=== PATIENT | female | born 1930 | race Caucasian/White ===

== ENCOUNTER 2018-03-16 12:00 | Emergency (ER) | payer MEDICARE, BC ==
[2018-03-16 12:07] VITALS: BP 138/66; PULSE 72; RESP 18; TEMP 98.1
--- NOTE | 2018-03-16 12:19 | ED ---
Skin/Abscess/FB HPI - General Chief complaint: Skin/Abscess/Foreign Body Stated complaint: Cellulitis Time Seen by Provider: 03/16/18 12:11 Source: patient, RN notes reviewed Mode of arrival: ambulatory Limitations: no limitations - History of Present Illness Initial comments: This is a 87-year-old female presented emergency Department chief complaint of right leg infection. Patient states she's noticed some redness last couple days she did start taking old antibiotics yesterday and she thought she should have it checked. Patient states she cut her legs frequently because she has thin skin. She reports no fever or chills. She states that she was worrying about this so she was concerned. Patient denies any headache, dizziness, chest pain or shortness of breath. - Related Data Home Medications Medication Instructions Recorded Confirmed LORazepam [Ativan] 0.5 mg PO Q6HR PRN 01/02/14 09/20/15 Furosemide [Lasix] 40 mg PO DAILY 07/22/14 09/20/15 Potassium Chloride [Klor-Con 8] 8 meq PO DAILY 07/22/14 09/20/15 cycloSPORINE 0.05% OPHTH SOLN 1 drops BOTH EYES BID 09/16/14 09/20/15 [Restasis] Polyethylene Glycol 3350 [Miralax] 17 gm PO DAILY 09/17/14 09/20/15 Mometasone/Formoterol [Dulera 200 2 puff INHALATION RT-DAILY 09/27/14 09/20/15 Mcg/5 Mcg Inhaler] Atorvastatin [Lipitor] 40 mg PO HS 09/14/15 09/20/15 Ascorbic Acid [Vitamin C] 500 mg PO DAILY 09/15/15 09/20/15 Lisinopril-Hctz 20-12.5 mg 1 tab PO BID 09/20/15 09/20/15 [Zestoretic 20-12.5] Cristel Eye 1 cap PO DAILY 09/20/15 09/20/15 Previous Rx's Medication Instructions Recorded Aspirin EC [Ecotrin Low Dose] 81 mg PO DAILY tablet. 09/26/15 amLODIPine [Norvasc] 10 mg PO 1200 #1 tab 09/26/15 cloNIDine HCL [Catapres] 0.1 mg PO BID #60 tab 09/26/15 Sulfamethox-Tmp 800-160Mg [Bactrim 1 each PO Q12HR #20 tab 03/16/18 Ds] Allergies Allergy/AdvReac Type Severity Reaction Status Date / Time gabapentin Allergy Rapid Verified 03/16/18 12:08 Heart Rate hydralazine [Hydralazine] Allergy HEART Verified 03/16/18 12:08 PALPITATIONS pregabalin [From Lyrica] Allergy Unknown Verified 03/16/18 12:08 Review of Systems ROS Statement: Those systems with pertinent positive or pertinent negative responses have been documented in the HPI. ROS Other: All systems not noted in ROS Statement are negative. Past Medical History Past Medical History: Asthma, Diabetes Mellitus, Hyperlipidemia, Hypertension Additional Past Medical History / Comment(s): recent uti History of Any Multi-Drug Resistant Organisms: None Reported Past Surgical History: Cholecystectomy, Hysterectomy Additional Past Surgical History / Comment(s): BLADDER SUSPENSION , KNEE SURGERY. Past Anesthesia/Blood Transfusion Reactions: No Reported Reaction Past Psychological History: No Psychological Hx Reported Smoking Status: Never smoker Past Alcohol Use History: None Reported Past Drug Use History: None Reported - Past Family History Father History Unknown: Yes Additional Family Medical History / Comment(s): parents divored-never knew her dad Mother Family Medical History: Diabetes Mellitus Additional Family Medical History / Comment(s): TIA General Exam Limitations: no limitations General appearance: alert, in no apparent distress Head exam: Present: atraumatic, normocephalic, normal inspection Respiratory exam: Present: normal lung sounds bilaterally. Absent: respiratory distress, wheezes, rales, rhonchi, stridor Cardiovascular Exam: Present: regular rate, normal rhythm, normal heart sounds. Absent: systolic murmur, diastolic murmur, rubs, gallop, clicks Extremities exam: Present: other (Right lower extremity there is an area approximately 2 cm of erythema around small hematoma laceration.) Skin exam: Present: warm, dry, intact, normal color. Absent: rash Course Vital Signs 03/16/18 12:05 Temperature 98.1 F Pulse Rate 72 Respiratory 18 Rate Blood Pressure 138/66 O2 Sat by Pulse 96 Oximetry Medical Decision Making - Medical Decision Making 87-year-old female presented emergency department for leg infection. Patient started taking old antibiotics is only taken a couple doses. Patient was started on Bactrim at this time. She'll have recheck in 2 days return for any worsening symptoms. Disposition Clinical Impression: Cellulitis of right leg Disposition: HOME SELF-CARE Condition: Stable Instructions: Cellulitis (ED) Additional Instructions: Please return to the Emergency Department if symptoms worsen or any other concerns. Prescriptions: Sulfamethox-Tmp 800-160Mg [Bactrim Ds] 1 each PO Q12HR #20 tab Is patient prescribed a controlled substance at d/c from ED?: No Referrals: Mikhail Courtney DO [Primary Care Provider] - 1-2 days Time of Disposition: 12:18
== END 2018-03-16 12:34 | disposition home or self-care (01) ==
LOC: EC 12:00
DX: L03.115 Cellulitis of right lower limb (principal); J45.909 Unspecified asthma, uncomplicated; E78.5 Hyperlipidemia, unspecified; I10 Essential (primary) hypertension; Z79.51 Long term (current) use of inhaled steroids; Z79.899 Other long term (current) drug therapy; Z88.8 Allergy status to other drugs, medicaments and biological substances
CPT/HCPCS: 99283

== ENCOUNTER 2018-03-17 17:34 | Emergency (ER) | payer MEDICARE, BC ==
[2018-03-17 17:41] VITALS: RESP 18
--- NOTE | 2018-03-17 18:13 | ED ---
General Adult HPI - General Chief complaint: Arrhythmia/Palpitations Stated complaint: SOB Time Seen by Provider: 03/17/18 17:43 Source: patient, RN notes reviewed, old records reviewed Mode of arrival: wheelchair Limitations: no limitations - History of Present Illness Initial comments: 87-year-old female presents for evaluation of palpitations and fluttering in her chest. Denies any pain or pressure sensation in her chest. She does report pain in her right scapula which is been present for many months and is unchanged. Denies nausea or vomiting. Denies abdominal pain. Denies fever or chills. Patient has history of atrial fibrillation status post ablation. She is currently wearing a monitor for similar symptoms. - Related Data Home Medications Medication Instructions Recorded Confirmed LORazepam [Ativan] 0.25 mg PO Q6HR PRN 01/02/14 03/17/18 Furosemide [Lasix] 40 mg PO DAILY 07/22/14 03/17/18 Potassium Chloride [Klor-Con 8] 8 meq PO DAILY 07/22/14 03/17/18 Mometasone/Formoterol [Dulera 200 2 puff INHALATION RT-DAILY 09/27/14 03/17/18 Mcg/5 Mcg Inhaler] Ascorbic Acid [Vitamin C] 500 mg PO DAILY 09/15/15 03/17/18 Lisinopril-Hctz 20-12.5 mg 1 tab PO BID 09/20/15 03/17/18 [Zestoretic 20-12.5] Cristel Eye 1 cap PO DAILY 09/20/15 03/17/18 Meclizine [Antivert] 25 mg PO BID 03/16/18 03/17/18 amLODIPine [Norvasc] 10 mg PO DAILY 03/16/18 03/17/18 cloNIDine HCL [Catapres] 0.05 mg PO TID 03/16/18 03/17/18 traMADol HCL [Ultram] 50 mg PO Q4HR PRN 03/16/18 03/17/18 Allergies Allergy/AdvReac Type Severity Reaction Status Date / Time gabapentin Allergy Rapid Verified 03/17/18 17:41 Heart Rate hydralazine [Hydralazine] Allergy HEART Verified 03/17/18 17:41 PALPITATIONS pregabalin [From Lyrica] Allergy Unknown Verified 03/17/18 17:41 Review of Systems ROS Statement: Those systems with pertinent positive or pertinent negative responses have been documented in the HPI. ROS Other: All systems not noted in ROS Statement are negative. Past Medical History Past Medical History: Asthma, Diabetes Mellitus, Hyperlipidemia, Hypertension Additional Past Medical History / Comment(s): recent uti History of Any Multi-Drug Resistant Organisms: None Reported Past Surgical History: Cholecystectomy, Hysterectomy Additional Past Surgical History / Comment(s): BLADDER SUSPENSION , KNEE SURGERY. Past Anesthesia/Blood Transfusion Reactions: No Reported Reaction Past Psychological History: No Psychological Hx Reported Smoking Status: Never smoker Past Alcohol Use History: None Reported Past Drug Use History: None Reported - Past Family History Father History Unknown: Yes Additional Family Medical History / Comment(s): parents divored-never knew her dad Mother Family Medical History: Diabetes Mellitus Additional Family Medical History / Comment(s): TIA General Exam Limitations: no limitations General appearance: alert, in no apparent distress Head exam: Present: atraumatic, normocephalic Eye exam: Present: normal appearance, PERRL, EOMI ENT exam: Present: normal exam Neck exam: Present: normal inspection. Absent: tenderness, meningismus Respiratory exam: Present: normal lung sounds bilaterally. Absent: respiratory distress, wheezes Cardiovascular Exam: Present: regular rate, normal rhythm GI/Abdominal exam: Present: soft. Absent: distended, tenderness, guarding Extremities exam: Present: normal inspection, normal capillary refill, pedal edema (trace) Back exam: Present: normal inspection Neurological exam: Present: alert, oriented X3, CN II-XII intact. Absent: motor sensory deficit Psychiatric exam: Present: normal affect, normal mood Skin exam: Present: warm, dry, intact. Absent: cyanosis, diaphoretic Course Vital Signs 03/17/18 17:39 Temperature 98.2 F Pulse Rate 72 Respiratory 18 Rate Blood Pressure 179/83 O2 Sat by Pulse 99 Oximetry EKG Findings - EKG Comments: EKG Findings:: EKG: Sinus rhythm with first-degree AV block, rate of 62, WA interval 220, QRS duration 90, QTC 414, QTC 420, no ST segment elevation or depression. Medical Decision Making - Medical Decision Making 87-year-old female presenting with palpitations. No associated symptoms. EKG shows normal sinus rhythm with first-degree AV block normal rate of 62. Chest x -ray negative for any acute cardiopulmonary disease. Normal CBC, normal electrolytes, negative troponin. 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 She will continue to wear this monitor. She is offered observation for cardiology consultation, she declines, stating she will follow-up as an outpatient. She will continue to monitor her symptoms and where her heart monitor. Return with worsening or changing symptoms. - Lab Data Result diagrams: 03/17/18 18:06 03/17/18 18:06 Lab Results 03/17/18 03/17/18 03/17/18 Range/Units 18:06 18:06 18:06 WBC 8.3 (3.8-10.6) k/uL RBC 4.40 (3.80-5.40) m/uL Hgb 13.0 (11.4-16.0) gm/dL Hct 39.7 (34.0-46.0) % MCV 90.3 (80.0-100.0) fL MCH 29.6 (25.0-35.0) pg MCHC 32.8 (31.0-37.0) g/dL RDW 12.7 (11.5-15.5) % Plt Count 271 (150-450) k/uL Neutrophils % 69 % Lymphocytes % 17 % Monocytes % 7 % Eosinophils % 4 % Basophils % 1 % Neutrophils # 5.7 (1.3-7.7) k/uL Lymphocytes # 1.4 (1.0-4.8) k/uL Monocytes # 0.6 (0-1.0) k/uL Eosinophils # 0.3 (0-0.7) k/uL Basophils # 0.1 (0-0.2) k/uL PT (9.0-12.0) sec INR (<1.2) APTT (22.0-30.0) sec Sodium 136 L (137-145) mmol/L Potassium 3.6 (3.5-5.1) mmol/L Chloride 98 (98-107) mmol/L Carbon Dioxide 30 (22-30) mmol/L Anion Gap 8 mmol/L BUN 19 H (7-17) mg/dL Creatinine 0.67 (0.52-1.04) mg/dL Est GFR (CKD-EPI)AfAm >90 (>60 ml/min/1.73 sqM) Est GFR (CKD-EPI)NonAf 79 (>60 ml/min/1.73 sqM) Glucose 121 H (74-99) mg/dL Calcium 9.8 (8.4-10.2) mg/dL Magnesium 2.0 (1.6-2.3) mg/dL Total Bilirubin 0.3 (0.2-1.3) mg/dL AST 21 (14-36) U/L ALT 29 (9-52) U/L Alkaline Phosphatase 57 (38-126) U/L Total Creatine Kinase 25 L (30-135) U/L CK-MB (CK-2) 1.0 (0.0-2.4) ng/mL CK-MB (CK-2) Rel Index 4.0 Troponin I <0.012 (0.000-0.034) ng/mL Total Protein 6.8 (6.3-8.2) g/dL Albumin 4.0 (3.5-5.0) g/dL 03/17/18 Range/Units 18:06 WBC (3.8-10.6) k/uL RBC (3.80-5.40) m/uL Hgb (11.4-16.0) gm/dL Hct (34.0-46.0) % MCV (80.0-100.0) fL MCH (25.0-35.0) pg MCHC (31.0-37.0) g/dL RDW (11.5-15.5) % Plt Count (150-450) k/uL Neutrophils % % Lymphocytes % % Monocytes % % Eosinophils % % Basophils % % Neutrophils # (1.3-7.7) k/uL Lymphocytes # (1.0-4.8) k/uL Monocytes # (0-1.0) k/uL Eosinophils # (0-0.7) k/uL Basophils # (0-0.2) k/uL PT 9.8 (9.0-12.0) sec INR 1.0 (<1.2) APTT 24.8 (22.0-30.0) sec Sodium (137-145) mmol/L Potassium (3.5-5.1) mmol/L Chloride (98-107) mmol/L Carbon Dioxide (22-30) mmol/L Anion Gap mmol/L BUN (7-17) mg/dL Creatinine (0.52-1.04) mg/dL Est GFR (CKD-EPI)AfAm (>60 ml/min/1.73 sqM) Est GFR (CKD-EPI)NonAf (>60 ml/min/1.73 sqM) Glucose (74-99) mg/dL Calcium (8.4-10.2) mg/dL Magnesium (1.6-2.3) mg/dL Total Bilirubin (0.2-1.3) mg/dL AST (14-36) U/L ALT (9-52) U/L Alkaline Phosphatase (38-126) U/L Total Creatine Kinase (30-135) U/L CK-MB (CK-2) (0.0-2.4) ng/mL CK-MB (CK-2) Rel Index Troponin I (0.000-0.034) ng/mL Total Protein (6.3-8.2) g/dL Albumin (3.5-5.0) g/dL Disposition Clinical Impression: Palpitations Disposition: HOME SELF-CARE Condition: Stable Instructions: Palpitations (ED) Is patient prescribed a controlled substance at d/c from ED?: No Referrals: Mikhail Courtney DO [Primary Care Provider] - 1-2 days Eduardo Dickinson MD [STAFF PHYSICIAN] - 1-2 days Time of Disposition: 20:07
[2018-03-17 18:30] LABS: Basophils # (A) 0.1 k/uL (0-0.2); Basophils % (A) 1 %; Eosinophils # (A) 0.3 k/uL (0-0.7); Eosinophils % (A) 4 %; HCT 39.7 % (34.0-46.0); Lymphocytes # (A) 1.4 k/uL (1.0-4.8); Lymphocytes % (A) 17 %; MCH 29.6 pg (25.0-35.0); MCHC 32.8 g/dL (31.0-37.0); MCV 90.3 fL (80.0-100.0); Mean Platelet Volume 6.8; Monocytes # (A) 0.6 k/uL (0-1.0); Monocytes % (A) 7 %; Neutrophils # (A) 5.7 k/uL (1.3-7.7); Neutrophils % (A) 69 %; Platelet Count 271 k/uL (150-450); RDW 12.7 % (11.5-15.5); WBC 8.3 k/uL (3.8-10.6)
[2018-03-17 18:35] LABS: Anion Gap 8 mmol/L; Blood Urea Nitrogen 19 mg/dL (7-17); Calcium 9.8 mg/dL (8.4-10.2); Carbon Dioxide 30 mmol/L (22-30); Chloride 98 mmol/L (98-107); Potassium 3.6 mmol/L (3.5-5.1); Sodium 136 mmol/L (137-145); Total Bilirubin 0.3 mg/dL (0.2-1.3); Total Protein 6.8 g/dL (6.3-8.2)
[2018-03-17 18:36] LABS: ALT 29 U/L (9-52); AST 21 U/L (14-36); Alkaline Phosphatase 57 U/L (38-126); Glucose 121 mg/dL (74-99); Partial Thromboplastin Time 24.8 sec (22.0-30.0); Prothrombin Time 9.8 sec (9.0-12.0)
[2018-03-17 18:38] LABS: Creatine Kinase 25 U/L (30-135)
--- NOTE | 2018-03-17 19:03 | XR ---
EXAMINATION: XR chest 2V DATE AND TIME: 03/17/2018 6:56 PM CLINICAL INDICATION: dysrhythmia TECHNIQUE: PA and lateral COMPARISON: 09/20/2015 FINDINGS: The lungs are clear. The pleural spaces are negative. The cardiac silhouette is not enlarged. The remainder of the mediastinal silhouette is unremarkable. The skeletal structures and soft tissues are negative for acute findings. IMPRESSION: NO ACUTE PROCESS.
[2018-03-17 19:44] LABS: Troponin I <0.012 ng/mL (0.000-0.034)
[2018-03-17 20:21] VITALS: BP 169/72; PULSE 88; TEMP 97.9
== END 2018-03-17 20:15 | disposition home or self-care (01) ==
LOC: EC 17:34
DX: R00.2 Palpitations (principal); J45.909 Unspecified asthma, uncomplicated; E11.9 Type 2 diabetes mellitus without complications; E78.5 Hyperlipidemia, unspecified; I10 Essential (primary) hypertension; I48.91 Unspecified atrial fibrillation; Z79.51 Long term (current) use of inhaled steroids; Z79.899 Other long term (current) drug therapy; Z88.8 Allergy status to other drugs, medicaments and biological substances; Z98.890 Other specified postprocedural states
CPT/HCPCS: 36415; 71046; 80053; 82550; 82553; 83735; 84484; 85025; 85610; 85730; 93005; 99285

== ENCOUNTER 2018-05-26 12:58 | Observation (INO) | payer MEDICARE, BC ==
--- NOTE | 2018-05-26 13:26 | ED ---
General Adult HPI - General Chief complaint: Neuro Symptoms/Deficit Stated complaint: POSS TIA Time Seen by Provider: 05/26/18 13:00 Source: patient, RN notes reviewed Mode of arrival: ambulatory Limitations: no limitations - History of Present Illness Initial comments: This is a 88-year-old female presents emergency Department complaining of expressive aphasia. Patient states at 9:00 last night she was talking some on the phone was unable to get her words out so she ended the conversation. Patient states she doesn't how long the symptoms lasted because she started having headaches she went to bed per patient states she woke up this morning continued to have a headache and felt a little dizzy and she talked to her physician they told her to come to the emergency department. Patient states she can speak clearly now she has no facial droop that she is noted she's noted no weakness or numbness. Patient denies any chest pain difficulty breathing shortness of breath per patient denies any palpitations. Patient denies any recent fever chills or cough. Patient denied any abdominal pain patient denies nausea vomiting or diarrhea. - Related Data Home Medications Medication Instructions Recorded Confirmed Furosemide [Lasix] 40 mg PO DAILY 07/22/14 05/26/18 Potassium Chloride [Klor-Con 8] 8 meq PO DAILY 07/22/14 05/26/18 Mometasone/Formoterol [Dulera 200 2 puff INHALATION RT-DAILY 09/27/14 05/26/18 Mcg/5 Mcg Inhaler] Ascorbic Acid [Vitamin C] 500 mg PO DAILY 09/15/15 05/26/18 Lisinopril-Hctz 20-12.5 mg 1 tab PO BID 09/20/15 05/26/18 [Zestoretic 20-12.5] amLODIPine [Norvasc] 10 mg PO DAILY 03/16/18 05/26/18 cloNIDine HCL [Catapres] 0.01 mg PO BID 03/16/18 05/26/18 traMADol HCL [Ultram] 50 mg PO Q4HR PRN 03/16/18 05/26/18 Cholecalciferol [Vitamin D3] 5,000 unit PO DAILY 05/26/18 05/26/18 Multivitamin,Therapeutic [Thera] 1 tab PO DAILY 05/26/18 05/26/18 [place]-3 Fatty Acids/Fish Oil [Fish 1 cap PO DAILY 05/26/18 05/26/18 Oil 1,000 mg Softgel] Vitamin E 100 unit PO DAILY 05/26/18 05/26/18 Allergies Allergy/AdvReac Type Severity Reaction Status Date / Time gabapentin Allergy Rapid Verified 05/26/18 13:29 Heart Rate hydralazine [Hydralazine] Allergy HEART Verified 05/26/18 13:29 PALPITATIONS pregabalin [From Lyrica] Allergy Unknown Verified 05/26/18 13:29 Review of Systems ROS Statement: Those systems with pertinent positive or pertinent negative responses have been documented in the HPI. ROS Other: All systems not noted in ROS Statement are negative. Past Medical History Past Medical History: Asthma, Diabetes Mellitus, Hyperlipidemia, Hypertension Additional Past Medical History / Comment(s): recent uti History of Any Multi-Drug Resistant Organisms: None Reported Past Surgical History: Cholecystectomy, Hysterectomy Additional Past Surgical History / Comment(s): BLADDER SUSPENSION , KNEE SURGERY. Past Anesthesia/Blood Transfusion Reactions: No Reported Reaction Past Psychological History: No Psychological Hx Reported Smoking Status: Never smoker Past Alcohol Use History: None Reported Past Drug Use History: None Reported - Past Family History Father History Unknown: Yes Additional Family Medical History / Comment(s): parents divored-never knew her dad Mother Family Medical History: Diabetes Mellitus Additional Family Medical History / Comment(s): TIA General Exam - General Exam Comments Initial Comments: GENERAL: Patient is well-developed and well-nourished. Patient is nontoxic and well- hydrated and is in no acute distress. ENT: Neck is soft and supple. No significant lymphadenopathy is noted. Oropharynx is clear. Moist mucous membranes. Neck has full range of motion without eliciting any pain. EYES: The sclera were anicteric and conjunctiva were pink and moist. Extraocular movements were intact and pupils were equal round and reactive to light. Eyelids were unremarkable. PULMONARY: Unlabored respirations. Good breath sounds bilaterally. No audible rales rhonchi or wheezing was noted. CARDIOVASCULAR: There is a regular rate and rhythm without any murmurs gallops or rubs. ABDOMEN: Soft and nontender with normal bowel sounds. No palpable organomegaly was noted. There is no palpable pulsatile mass. SKIN: Skin is clear with no lesions or rashes and otherwise unremarkable. NEUROLOGIC: Patient is alert and oriented x3. Cranial nerves II through XII are grossly intact. Motor and sensory are also intact. Normal speech, volume and content. Symmetrical smile. MUSCULOSKELETAL: Normal extremities with adequate strength and full range of motion. No lower extremity swelling or edema. No calf tenderness. LYMPHATICS: No significant lymphadenopathy is noted PSYCHIATRIC: Normal psychiatric evaluation. Limitations: no limitations Course Vital Signs 05/26/18 12:59 Temperature 98.4 F Pulse Rate 56 L Respiratory 18 Rate Blood Pressure 150/66 O2 Sat by Pulse 97 Oximetry Medical Decision Making - Medical Decision Making EKG shows sinus bradycardia 55 bpm MN interval is 242 QRS is 86 QT interval 428 QTC is 409 per patient's EKG shows no ST segment elevation or depression or T wave abnormalities are noted. CT of the brain shows no acute abnormality. Chest x-ray shows no acute abnormality. I will back into reevaluate the patient she was not having any symptoms and has not had any symptoms while in the emergency department. I spoke with because she agreed to admit the patient admitted the patient consult to neurology and I wrote admitting orders. - Lab Data Result diagrams: 05/26/18 13:43 05/26/18 13:43 Lab Results 05/26/18 05/26/18 05/26/18 Range/Units 13:43 13:43 13:43 WBC 6.5 (3.8-10.6) k/uL RBC 4.44 (3.80-5.40) m/uL Hgb 13.1 (11.4-16.0) gm/dL Hct 39.1 (34.0-46.0) % MCV 88.1 (80.0-100.0) fL MCH 29.6 (25.0-35.0) pg MCHC 33.6 (31.0-37.0) g/dL RDW 12.2 (11.5-15.5) % Plt Count 233 (150-450) k/uL Neutrophils % 67 % Lymphocytes % 12 % Monocytes % 9 % Eosinophils % 8 % Basophils % 1 % Neutrophils # 4.3 (1.3-7.7) k/uL Lymphocytes # 0.8 L (1.0-4.8) k/uL Monocytes # 0.6 (0-1.0) k/uL Eosinophils # 0.5 (0-0.7) k/uL Basophils # 0.0 (0-0.2) k/uL PT (9.0-12.0) sec INR (<1.2) APTT (22.0-30.0) sec Sodium 135 L (137-145) mmol/L Potassium 4.6 (3.5-5.1) mmol/L Chloride 102 (98-107) mmol/L Carbon Dioxide 25 (22-30) mmol/L Anion Gap 8 mmol/L BUN 13 (7-17) mg/dL Creatinine 0.52 (0.52-1.04) mg/dL Est GFR (CKD-EPI)AfAm >90 (>60 ml/min/1.73 sqM) Est GFR (CKD-EPI)NonAf 86 (>60 ml/min/1.73 sqM) Glucose 100 H (74-99) mg/dL Calcium 9.5 (8.4-10.2) mg/dL Total Bilirubin 0.3 (0.2-1.3) mg/dL AST 21 (14-36) U/L ALT 29 (9-52) U/L Alkaline Phosphatase 58 (38-126) U/L Total Creatine Kinase 24 L (30-135) U/L CK-MB (CK-2) 0.9 (0.0-2.4) ng/mL CK-MB (CK-2) Rel Index 3.8 Troponin I <0.012 (0.000-0.034) ng/mL Total Protein 6.2 L (6.3-8.2) g/dL Albumin 3.5 (3.5-5.0) g/dL 05/26/18 Range/Units 13:43 WBC (3.8-10.6) k/uL RBC (3.80-5.40) m/uL Hgb (11.4-16.0) gm/dL Hct (34.0-46.0) % MCV (80.0-100.0) fL MCH (25.0-35.0) pg MCHC (31.0-37.0) g/dL RDW (11.5-15.5) % Plt Count (150-450) k/uL Neutrophils % % Lymphocytes % % Monocytes % % Eosinophils % % Basophils % % Neutrophils # (1.3-7.7) k/uL Lymphocytes # (1.0-4.8) k/uL Monocytes # (0-1.0) k/uL Eosinophils # (0-0.7) k/uL Basophils # (0-0.2) k/uL PT 10.0 (9.0-12.0) sec INR 1.0 (<1.2) APTT 26.6 (22.0-30.0) sec Sodium (137-145) mmol/L Potassium (3.5-5.1) mmol/L Chloride (98-107) mmol/L Carbon Dioxide (22-30) mmol/L Anion Gap mmol/L BUN (7-17) mg/dL Creatinine (0.52-1.04) mg/dL Est GFR (CKD-EPI)AfAm (>60 ml/min/1.73 sqM) Est GFR (CKD-EPI)NonAf (>60 ml/min/1.73 sqM) Glucose (74-99) mg/dL Calcium (8.4-10.2) mg/dL Total Bilirubin (0.2-1.3) mg/dL AST (14-36) U/L ALT (9-52) U/L Alkaline Phosphatase (38-126) U/L Total Creatine Kinase (30-135) U/L CK-MB (CK-2) (0.0-2.4) ng/mL CK-MB (CK-2) Rel Index Troponin I (0.000-0.034) ng/mL Total Protein (6.3-8.2) g/dL Albumin (3.5-5.0) g/dL Disposition Clinical Impression: Transient cerebral ischemia Disposition: ADMITTED IP TO THIS HOSP Referrals: Mikhail Courtney DO [Primary Care Provider] - 1-2 days Time of Disposition: 15:06
[2018-05-26 14:04] LABS: Basophils % (A) 1 %; Eosinophils # (A) 0.5 k/uL (0-0.7); Eosinophils % (A) 8 %; HCT 39.1 % (34.0-46.0); HGB 13.1 gm/dL (11.4-16.0); Lymphocytes # (A) 0.8 k/uL (1.0-4.8); Lymphocytes % (A) 12 %; MCH 29.6 pg (25.0-35.0); MCHC 33.6 g/dL (31.0-37.0); MCV 88.1 fL (80.0-100.0); Mean Platelet Volume 7.3; Monocytes # (A) 0.6 k/uL (0-1.0); Monocytes % (A) 9 %; Neutrophils # (A) 4.3 k/uL (1.3-7.7); Neutrophils % (A) 67 %; Platelet Count 233 k/uL (150-450); RBC 4.44 m/uL (3.80-5.40); RDW 12.2 % (11.5-15.5); WBC 6.5 k/uL (3.8-10.6)
[2018-05-26 14:07] LABS: Partial Thromboplastin Time 26.6 sec (22.0-30.0)
[2018-05-26 14:13] LABS: ALT 29 U/L (9-52); AST 21 U/L (14-36); Albumin 3.5 g/dL (3.5-5.0); Alkaline Phosphatase 58 U/L (38-126); Anion Gap 8 mmol/L; Blood Urea Nitrogen 13 mg/dL (7-17); Calcium 9.5 mg/dL (8.4-10.2); Carbon Dioxide 25 mmol/L (22-30); Chloride 102 mmol/L (98-107); Glucose 100 mg/dL (74-99); Potassium 4.6 mmol/L (3.5-5.1); Sodium 135 mmol/L (137-145); Total Bilirubin 0.3 mg/dL (0.2-1.3); Total Protein 6.2 g/dL (6.3-8.2)
[2018-05-26 14:17] LABS: Creatine Kinase 24 U/L (30-135)
[2018-05-26 14:30] LABS: Creatine Kinase MB 0.9 ng/mL (0.0-2.4); Troponin I <0.012 ng/mL (0.000-0.034)
--- NOTE | 2018-05-26 14:32 | XR ---
EXAMINATION TYPE: XR chest 2V DATE OF EXAM: 05/26/2018 COMPARISON: 03/17/2018 TECHNIQUE: PA and lateral views submitted. HISTORY: Altered mental status FINDINGS: The lungs are clear and there is no pneumothorax, pleural effusion, or focal pneumonia. The heart i s prominent there is atherosclerotic change aorta. Arthropathy of the shoulders. No overt failure. Hy perinflation noted. Hypertrophic and degenerative change of the spine. Retrocardiac calcification may be related to annular calcification. IMPRESSION: 1. Cardiomegaly with no acute infiltrate or overt failure..
--- NOTE | 2018-05-26 14:48 | CT ---
EXAMINATION TYPE: CT brain wo con DATE OF EXAM: 05/26/2018 COMPARISON: 01/02/2014 INDICATION: Difficulty with speech, weakness. DLP: 938.2 mGycm, Automated exposure control for dose reduction was used. CONTRAST: None CT of the brain is performed utilizing 3 mm thick sections through the posterior fossa and 3 mm thick sections through the remaining calvarium. Study is performed within 24 hours of arrival to the hosp [facility]. No abnormal hyperdensity is present to suggest an acute intracranial hemorrhage. No mass lesion is evident. No acute infarcts are evident. Some subtle chronic appearing white matter changes may be present. Thi s would be stable from comparison Ventricles and sulci are appropriate for the patient age. Paranasal sinuses and mastoid air cells within the [id number] are clear. IMPRESSIONS: 1. No acute intracranial process.
[2018-05-26] MEDS ORDERED: ASPIRIN 325 MG TAB PO STA (15:07)
[2018-05-26] MEDS ORDERED: ASPIRIN 81 MG PO STA (15:17)
[2018-05-26] MEDS ORDERED: MELATONIN 5 MG TABLET PO PRN (20:39)
[2018-05-26] MEDS ORDERED: traMADol 50 MG TAB PO PRN (20:39)
--- NOTE | 2018-05-26 20:53 | US ---
EXAMINATION TYPE: US carotid duplex BILAT DATE OF EXAM: 05/26/2018 COMPARISON: NONE CLINICAL HISTORY: Stenosis. TIA EXAM MEASUREMENTS: RIGHT: Peak Systolic Velocity (PSV) cm/sec ----- Right CCA: 78.4 ----- Right ICA: 74.0 ----- Right ECA: 47.8 ICA/CCA ratio: 0.9 RIGHT: End Diastole cm/sec ----- Right CCA: 12.9 ----- Right ICA: 11.5 ----- Right ECA: 0 LEFT: Peak Systolic Velocity (PSV) cm/sec ----- Left CCA: 63.8 ----- Left ICA: 104.8 ----- Left ECA: 85.4 ICA/CCA ratio: 1.6 LEFT: End Diastole cm/sec ----- Left CCA: 12.9 ----- Left ICA: 16.0 ----- Left ECA: 6.3 VERTEBRALS (direction of flow): Right Vertebral: Antegrade Left Vertebral: Antegrade Rhythm: Normal No significant stenosis seen IMPRESSION: There is antegrade flow in the vertebral arteries. The images and measurements suggest 3 0-40% stenosis in the left internal carotid artery and 20% stenosis in the right internal carotid art shannen. Criteria for Assigning % of Stenosis / Diameter reduction (Estimation based on the indirect measurements of the internal carotid artery velocities (ICA PSV). 1. Normal (no stenosis)=ICA PSV < 125 cm/s: ratio < 2.0: ICA EDV<40 cm/s. 2. Less than 50% stenosis=ICA PSV < 125 cm/s: ratio < 2.0: ICA EDV<40 cm/s. 3. 50 to 69% stenosis=ICA PSV of 125 to 230 cm/s: ration 2.0 ? 4.0: ICA EDV 40-100 cm/s. 4. Greater than 70% stenosis to near occlusion= ICA PSV > 230 cm/s: ratio > 4.0: ICA EDV > 100 cm/s. 5. Near occlusion= ICA PSV velocities may be low or undetectable: variable ratio and ICA EDV. 6. Total occlusion=unable to detect flow.
[2018-05-26] MEDS ORDERED: LORazepam 0.5 MG TAB PO SCH (21:00)
[2018-05-26 21:01] LABS: Glucose,Whole Blood 180 mg/dL (75-99)
[2018-05-26] MEDS ORDERED: ONDANSETRON 4 MG/2 ML VIAL IVP PRN (21:19)
[2018-05-26] MEDS ORDERED: ALPRAZolam 0.25 MG TAB PO PRN (21:19)
[2018-05-26] MEDS ORDERED: ENOXAPARIN 40 MG/0.4 ML SYRINGE SQ SCH (21:30)
--- NOTE | 2018-05-26 22:12 | HP ---
HISTORY AND PHYSICAL DATE OF ADMISSION AND DATE OF SERVICE: 05/26/2018 PRESENTING COMPLAINT: Difficulties with speech. HISTORY OF PRESENTING COMPLAINT: This is a pleasant 88-year-old patient of Dr. Courtney. Chronic stable medical conditions include hypertension, diabetes, hyperlipidemia, peripheral artery disease, aortic stenosis, GERD. Also a history of AV mohamud reentrant tachycardia with ablation by Dr. Dickinson in the past. Last night she was talking to a friend on the phone, as she had had a rather tired day. She felt that she was finding it difficult to find words and sometimes making sentences. She simply decided to hang up and go to bed. Patient did not feel any weakness in the arms or legs. There was no headache, no change in vision, no trouble swallowing at that time. This morning she called her doctor's office, who directed her to the ER. The patient did not find any further deficits and presented to the ER. In the ER, her blood pressure was 150/66. The patient had no more residual weakness when I was interviewing the patient earlier this evening. REVIEW OF SYSTEMS: CONSTITUTIONAL: None. HEENT: None. RESPIRATORY: None. CARDIOVASCULAR: None. GASTROINTESTINAL: None. GENITOURINARY: None. MUSCULOSKELETAL: Arthritic pain in joints. DERMATOLOGICAL: None. HEMATOLOGICAL: None. LYMPHATICS: None. PSYCHIATRY: None. NEUROLOGICAL: None. PAST MEDICAL HISTORY: 1. AV mohamud reentrant tachycardia with ablation. 2. Hypertension. 3. Diabetes. 4. Hyperlipidemia. 5. Peripheral arterial disease. 6. GERD. 7. Aortic stenosis. 8. Eczema. 9. Basal cell cancer on the scalp. 10.Cellulitis of the leg. PAST SURGICAL HISTORY: 1. Appendectomy. 2. Cardiac ablation. 3. Cholecystectomy. 4. Hysterectomy. 5. Tonsillectomy. 6. Bladder suspension. 7. Left knee surgery. 8. Left hand carpal tunnel release. 9. Cataract. 10.Basal cell cancer removed from scalp and ears. SOCIAL HISTORY: Lives alone. Drives. Does not smoke. Alcohol occasionally. FAMILY HISTORY: Diabetes and TIA. HOME MEDICATIONS: 1. Catapres 0.05 mg p.o. b.i.d. 2. Ativan 0.5 p.o. at bedtime. 3. Melatonin 5 mg p.o. at bedtime p.r.n. 4. Dulera 2 puffs daily. 5. Vitamin E 100 units p.o. daily. 6. Fish oil 1 capsule p.o. daily. 7. Multivitamin 1 tablet p.o. daily. 8. Ultram 50 mg q.4 p.r.n. 9. Norvasc 10 mg p.o. daily. 10.Potassium 10 mEq p.o. daily. 11.Zestoretic 20/12.5 one tablet p.o. b.i.d. 12.Lasix 40 mg p.o. daily. 13.Vitamin D3 5000 units p.o. daily. 14.Vitamin C 500 mg p.o. daily. ALLERGIES: 1. GABAPENTIN. 2. HYDRALAZINE. 3. LYRICA. PHYSICAL EXAMINATION: VITAL SIGNS ON PRESENTATION: Temperature 98.4, pulse 56, respiration 18, blood pressure 150/66, pulse ox 97% on room air. GENERAL APPEARANCE: Average build. Sitting up, comfortable. EYES: Pupils equal. Conjunctivae normal. HEENT: External appearance of nose and ears normal. Oral cavity normal. NECK: JVD not raised. Mass not palpable. RESPIRATORY: Effort normal. Lungs are clear. CARDIOVASCULAR: First and second sounds normal. No edema. ABDOMEN: Soft, non-tender. Liver and spleen not palpable. LYMPHATIC: No lymph node palpable in neck or axillae. PSYCHIATRY: Alert and oriented x3. Mood and affect normal. NEUROLOGICAL: Pupils equal. Cranial nerves grossly intact. Power and sensation grossly intact. INVESTIGATIONS: White count 6.5, hemoglobin 13.1, potassium 4.6. BUN and creatinine are normal. Troponin negative. CT scan of the brain nil acute. Chest x-ray film, personally reviewed by me, shows slight cardiomegaly. EKG tracing, personally reviewed by me, shows first-degree AV block, sinus rhythm. ASSESSMENT: 1. Possible transient ischemic attack with no neuro deficits. Patient's speech difficulty was very short-lived. 2. Essential hypertension. 3. Hyperlipidemia. 4. Peripheral artery disease. 5. Gastroesophageal reflux disease. PLAN: Patient is already on aspirin. Will check patient's lipid profile in the morning and add Lipitor. Will do an MRI of the brain. Neuro checks are in place. Lovenox for DVT prophylaxis. Other home medications are resumed. Care was discussed with the patient. Questions were answered. MMODL / IJN: [id number] /
[2018-05-26] MEDS: cloNIDine HCL 0.1 MG TAB PO SCH (22:35)
[2018-05-26] MEDS: LISINOPRIL-HCTZ 20-12.5 MG 1 EACH TAB PO SCH (22:36)
[2018-05-26] MEDS: amLODIPine 10 MG TAB PO SCH (22:36)
[2018-05-27 06:02] LABS: Glucose,Whole Blood 123 mg/dL (75-99)
[2018-05-27 06:32] LABS: Cholesterol 223 mg/dL (<200); HDL Cholesterol 50 mg/dL (40-60); LDL Cholesterol,Calculated 153 mg/dL (0-99); Triglycerides 100 mg/dL (<150)
[2018-05-27] MEDS ORDERED: SYMBICORT 160-4.5 MCG INHALER INHALATION SCH (08:00)
[2018-05-27] MEDS: cloNIDine HCL 0.1 MG TAB PO SCH (08:41)
[2018-05-27] MEDS: amLODIPine 10 MG TAB PO SCH (08:41)
[2018-05-27] MEDS: LISINOPRIL-HCTZ 20-12.5 MG 1 EACH TAB PO SCH (08:41)
[2018-05-27] MEDS ORDERED: FUROSEMIDE 40 MG TAB PO SCH (09:00)
[2018-05-27] MEDS ORDERED: ASCORBIC ACID 500 MG TAB PO SCH (09:00)
[2018-05-27] MEDS ORDERED: CHOLECALCIFEROL 1,000 UNIT TAB PO SCH (09:00)
[2018-05-27] MEDS ORDERED: NON-FORMULARY DRUG (Omega-3 Fatty Acids/Fish Oil [Fish Oil 1,000 Mg Softgel] 1 CAP) PO SCH (09:00)
[2018-05-27] MEDS ORDERED: VITAMIN E (DL,TOCOPHERYL ACET) 400 UNIT CAP PO SCH (09:00)
[2018-05-27 11:40] LABS: Glucose,Whole Blood 121 mg/dL (75-99)
[2018-05-27] MEDS ORDERED: MULTIVITAMINS, THERA 1 EACH TAB PO SCH (12:00)
--- NOTE | 2018-05-27 12:37 | MR ---
EXAMINATION TYPE: MR brain wo/w con DATE OF EXAM: 05/27/2018 COMPARISON: None HISTORY: transient loss of speech CONTRAST: Performed utilizing 6.5 mL intravenous Gadavist gadolinium contrast. TECHNIQUE: Multiplanar, multiecho imaging on a 3.0 Divina magnet is performed through the brain. Stud y is performed within 24 hours of arrival to the hospital. The craniovertebral junction is normal. The pituitary is normal. Diffusion-weighted imaging is performed. No abnormal hyperintensity is present to suggest an acute i ntracranial infarct or acute ischemic change. There is periventricular white matter hyperintensity on T2 and inversion recovery weighted sequences. Findings can be compatible with chronic white matter ischemic changes. Ventricles and sulci are slightly prominent for the patient age. No abnormal enhancement is evident. IMPRESSIONS: 1. Atrophy with periventricular white matter ischemic changes. 2. No acute intracranial changes.
[2018-05-27] MEDS ORDERED: ASPIRIN 325 MG TAB PO SCH (15:00)
[2018-05-27 15:39] VITALS: BP 134/80; PULSE 58; RESP 18; TEMP 98.5
[2018-05-27] MEDS ORDERED: ATORVASTATIN 40 MG TAB PO STA (17:09)
[2018-05-27 17:23] LABS: Glucose,Whole Blood 163 mg/dL (75-99)
--- NOTE | 2018-05-28 05:37 | DS ---
DISCHARGE SUMMARY DATE OF ADMISSION: 05/26/2018 DATE OF DISCHARGE: 05/27/2018. FINAL DIAGNOSES: 1. Transient ischemic attack manifesting as acute dysarthria. 2. Essential hypertension. 3. Hyperlipidemia. 4. Peripheral artery disease. 5. Gastroesophageal reflux disease. HOSPITAL COURSE: This patient had an episode before presenting of unable to speak out words, having trouble finding words, had no other focal deficits. When she woke up this morning, these symptoms completely resolved. The patient had a CT scan of the brain, carotid Doppler, MRI of the brain did not show any acute event. No critical stenosis. The patient LDL did come back at 153. PHYSICAL EXAMINATION: Temperature 98.5, pulse 80, respiratory 18, blood pressure 134/80, pulse ox 96% on room air. Neurological: No neuro deficits. LDL 153. DISCHARGE MEDICATIONS: 1. Lasix 40 mg a day. 2. Klor-Con 80 mEq a day. 3. Dulera 200/5 2 puffs b.i.d. daily. 4. Vitamin C 500 mg p.o. daily. 5. Zestoretic 14/07.5 one tablet p.o. b.i.d. 6. Norvasc 10 mg p.o. daily. 7. Catapres 0.05 mg p.o. b.i.d. 8. Ultram 50 mg p.o. q.4 p.r.n. 9. Vitamin D3 5000 units p.o. daily. 10.Ativan 0.5 p.o. at bedtime. 11.Melatonin 5 mg q.h.s. p.r.n. 12.Multivitamin 1 tablet p.o. daily. 13.Fish oil 1000 mg p.o. daily. 14.Vitamin E 100 units p.o. daily. 15.Aspirin 81 mg p.o. daily. 16.Lipitor 40 mg p.o. q.h.s. FOLLOW UP: Follow up with Dr. Courtney in [address] Courtney. MMFRIDAL / SHELIAN: [id number] /
== END 2018-05-27 18:00 | disposition home or self-care (01) ==
LOC: EC 12:58 → 3SCARD 15:07
PROVIDERS: ADMIT Hospitalist; ATTEND Hospitalist
DX: G45.9 Transient cerebral ischemic attack, unspecified (principal); R47.1 Dysarthria and anarthria; I10 Essential (primary) hypertension; E78.5 Hyperlipidemia, unspecified; E11.51 Type 2 diabetes mellitus with diabetic peripheral angiopathy without gangrene; K21.9 Gastro-esophageal reflux disease without esophagitis; I35.0 Nonrheumatic aortic (valve) stenosis; Z85.828 Personal history of other malignant neoplasm of skin; Z90.710 Acquired absence of both cervix and uterus; Z90.49 Acquired absence of other specified parts of digestive tract; Z79.51 Long term (current) use of inhaled steroids; Z79.899 Other long term (current) drug therapy; Z88.8 Allergy status to other drugs, medicaments and biological substances; Z82.3 Family history of stroke; Z83.3 Family history of diabetes mellitus; J45.909 Unspecified asthma, uncomplicated; Z79.82 Long term (current) use of aspirin
CPT/HCPCS: 96372; 99285; 36415; 94640; 93005; 92523; 80061; 80053; 82550; 82553; 84484; 85025; 85610; 85730; 71046; 93880; 70450; 70553; G0378 ×2; J1650; A9585

== ENCOUNTER → 2018-11-16 | Outpatient (CLI) | payer MEDICARE, BC | END | disposition home or self-care (01) | LOC: LABWHC1 11:14 | PROVIDERS: ATTEND Ophthalmology | DX: M35.01 Sjogren syndrome with keratoconjunctivitis (principal); H18.453 Nodular corneal degeneration, bilateral | CPT/HCPCS: 36415 ==

== ENCOUNTER 2018-11-29 07:50 | Day surgery (SDC) | payer MEDICARE, BC ==
[2018-11-24 11:49] VITALS: BMI 25.3
[~2018-11-29 07:50] MED LIST: SODIUM CHLORIDE 0.9% 1,000 ML IV SCH
[2018-11-29] MEDS ORDERED: LIDOCAINE 1% INJ 10MG/ML (20 ML MDV) ONE (08:43)
[2018-11-29] MEDS ORDERED: SODIUM CHLORIDE 0.9% 500 ML 500 ML IV ONE (08:56)
[2018-11-29] MEDS ORDERED: LIDOCAINE 1% INJ 10MG/ML (20 ML MDV) SQ ONE (09:15)
[2018-11-29] MEDS ORDERED: fentaNYL (PF) 50 MCG/ML 2 ML AMP ONE (09:15)
[2018-11-29] MEDS ORDERED: fentaNYL (PF) 50 MCG/ML 2 ML AMP IV ONE (09:16)
--- NOTE | 2018-11-29 09:29 | P.PCN ---
Preoperative Diagnosis: Loop monitor implant Primary physicians: Alexus Courtney Assistant To The Director: Dr. Prado Indication: Palpitations, bradycardia Patient was brought to the EP lab in a fasting state. Written informed consent was obtained prior to the procedure. The left pectoral area was prepped and draped per protocol. Intravenous antibiotic was administered preoperatively. A subcutaneous Loop monitor was implanted successfully and the wound was closed per protocol. The device was programmed to detect significant shamika- arrhythmic and tachy-arrhythmic events, per protocol. Device and programming details: Programmed to detect atrial fibrillation and bradycardia Patient underwent EP procedure under conscious sedation/moderate sedation, monitoring of the level of consciousness and physiologic parameters including but not limited to vital signs and oxygenation. Patient tolerated the procedure well without any acute complications. Start time: 913 Stop time: 922 Disposition: same day
--- NOTE | 2018-11-29 09:33 | P.PRLE ---
RE: Denise Mendez Dear Alexus Walker Andrea has been complaining of vibrations of the chest and palpitations that wake her up in the middle of the night did so far we have not documented any arrhythmias. A loop monitor was implanted to look for atrial fibrillation since she also has evidence of sick sinus syndrome and daytime bradycardia I will keep you posted if we detect any new arrhythmias Thank you for entrusting me with the care of the patient Warm regards Sincerely Eduardo Dickinson
[2018-11-29 09:49] LABS: Glucose,Whole Blood 111 mg/dL (75-99)
[2018-11-29 10:56] VITALS: PULSE 54
[2018-11-29 10:58] VITALS: BP 162/74; RESP 18
[2018-11-29] MEDS ORDERED: ceFAZolin IN SWFI 2 GM/20 ML SYRINGE IVP ONE (14:00)
== END 2018-11-29 10:50 | disposition home or self-care (01) ==
LOC: CATHEP 07:50
PROVIDERS: ATTEND Internal Medicine Clinical Cardiac Electrophysiology
DX: R00.2 Palpitations (principal); I49.5 Sick sinus syndrome; E11.9 Type 2 diabetes mellitus without complications; I10 Essential (primary) hypertension; E78.00 Pure hypercholesterolemia, unspecified; I35.0 Nonrheumatic aortic (valve) stenosis; I47.1 Supraventricular tachycardia; E78.5 Hyperlipidemia, unspecified; Z79.899 Other long term (current) drug therapy; Z79.51 Long term (current) use of inhaled steroids
CPT/HCPCS: 33285; C1764; J2001; J3010; J0690

== ENCOUNTER 2019-02-11 20:17 | Emergency (ER) | payer MEDICARE, BC ==
[2019-02-11 20:23] VITALS: BP 213/71; PULSE 70; RESP 18; TEMP 98
[2019-02-11] MEDS ORDERED: SODIUM CHLORIDE 0.9% 1,000 ML IV STA (20:30)
[2019-02-11] MEDS ORDERED: GLUCAGON 1 MG/ML VIAL IVP STA (20:30)
[2019-02-11] MEDS ORDERED: NITROGLYCERIN SL TABS 0.4 MG TAB SUBLINGUAL PRN (20:30)
[2019-02-11] MEDS ORDERED: DIAZEPAM 5 MG/ML 2 ML INJ IVP STA (20:30)
--- NOTE | 2019-02-11 20:31 | ED ---
ENT HPI - General Chief complaint: ENT Stated complaint: FB in throat Time Seen by Provider: 02/11/19 20:30 Source: patient, family, RN notes reviewed, old records reviewed Mode of arrival: ambulatory Limitations: no limitations - History of Present Illness Initial comments: This is an 80-year-old female the ER for evaluation. Patient resents today with what she believes is esophageal foreign body. Upon arrival to patient's room patient states she is feeling normal, able to eat or drink, swallow without difficulty patient states she feels fine and would like to be discharged home, currently asymptomatic - Related Data Home Medications Medication Instructions Recorded Confirmed Furosemide [Lasix] 20 mg PO DAILY 07/22/14 11/29/18 Potassium Chloride [Klor-Con 8] 8 meq PO DAILY 07/22/14 11/29/18 Mometasone/Formoterol [Dulera 200 2 puff INHALATION RT-DAILY 09/27/14 11/29/18 Mcg/5 Mcg Inhaler] Ascorbic Acid [Vitamin C] 500 mg PO DAILY 09/15/15 11/29/18 Lisinopril-Hctz 20-12.5 mg 1 tab PO BID 09/20/15 11/29/18 [Zestoretic 20-12.5] amLODIPine [Norvasc] 10 mg PO DAILY 03/16/18 11/29/18 cloNIDine HCL [Catapres] 0.05 mg PO TID 03/16/18 11/29/18 traMADol HCL [Ultram] 50 mg PO Q4HR PRN 03/16/18 11/29/18 Cholecalciferol [Vitamin D3 (25 5,000 unit PO DAILY 05/26/18 11/29/18 Mcg = 1000 Iu)] LORazepam [Ativan] 0.25 mg PO HS 05/26/18 11/29/18 Melatonin 10 mg PO HS 05/26/18 11/29/18 Multivitamin,Therapeutic [Thera] 1 tab PO DAILY 05/26/18 11/29/18 Cyanocobalamin (Vitamin B-12) 5,000 mcg PO ONCE 11/24/18 11/29/18 [Vitamin B-12] Vit C/E/Zn/Coppr/Lutein/Zeaxan 1 each PO DAILY 11/24/18 11/29/18 [Preservision Areds 2 Softgel] Previous Rx's Medication Instructions Recorded Atorvastatin Calcium [Lipitor] 40 mg PO HS #30 tablet 05/27/18 Allergies Allergy/AdvReac Type Severity Reaction Status Date / Time gabapentin Allergy Rapid Verified 02/11/19 20:23 Heart Rate hydralazine [Hydralazine] Allergy HEART Verified 02/11/19 20:23 PALPITATIONS pregabalin [From Lyrica] Allergy Unknown Verified 02/11/19 20:23 Review of Systems ROS Statement: Those systems with pertinent positive or pertinent negative responses have been documented in the HPI. ROS Other: All systems not noted in ROS Statement are negative. Past Medical History Past Medical History: Asthma, Cancer, CVA/TIA, Diabetes Mellitus, Hyperlipidemia, Hypertension, Musculoskeletal Disorder, Osteoarthritis (OA), Skin Disorder Additional Past Medical History / Comment(s): hx uti's, hx svt past ablation 2015. pt stated that around feb 2018 wore a heart moniitor for 25 days.. thin skin prone to skin tears use paper tape, murmur, basal cell skin cancer on scalp/ear(sx), tia 05/25/18, herniated disc,eczema, neuopathy, hx cellulitis rt leg, diet controlled diabetic History of Any Multi-Drug Resistant Organisms: None Reported Past Surgical History: Appendectomy, Bladder Surgery, Cardiac Ablation, Cholecystectomy, EPS, Hysterectomy, Tonsillectomy Additional Past Surgical History / Comment(s): BLADDER SUSPENSION , lt KNEE SURGERY ARTHROSCOPY, LT HAND CARPAL TUNNEL RELEASE, CATARACT, EP STUDY/ABLATION FOR SVT 2015, BASAL CELL SKIN CA REMOVED FROM SCALP AND EARS, PAIN PROCEDURES WITH EPIDURALS Past Anesthesia/Blood Transfusion Reactions: No Reported Reaction Past Psychological History: Anxiety Smoking Status: Never smoker - Past Family History Father History Unknown: Yes Additional Family Medical History / Comment(s): parents -never knew her dad Mother Family Medical History: CVA/TIA, Diabetes Mellitus Additional Family Medical History / Comment(s): TIA General Exam Limitations: no limitations General appearance: alert, in no apparent distress Head exam: Present: atraumatic, normocephalic, normal inspection Eye exam: Present: normal appearance, PERRL, EOMI. Absent: scleral icterus, conjunctival injection, periorbital swelling ENT exam: Present: normal exam, mucous membranes moist Neck exam: Present: normal inspection. Absent: tenderness, meningismus, lymphadenopathy Respiratory exam: Present: normal lung sounds bilaterally. Absent: respiratory distress, wheezes, rales, rhonchi, stridor Cardiovascular Exam: Present: regular rate, normal rhythm, normal heart sounds. Absent: systolic murmur, diastolic murmur, rubs, gallop, clicks GI/Abdominal exam: Present: soft, normal bowel sounds. Absent: distended, tenderness, guarding, rebound, rigid Extremities exam: Present: normal inspection, full ROM, normal capillary refill. Absent: tenderness, pedal edema, joint swelling, calf tenderness Back exam: Present: normal inspection Neurological exam: Present: alert, oriented X3, CN II-XII intact Psychiatric exam: Present: normal affect, normal mood Skin exam: Present: warm, dry, intact, normal color. Absent: rash Course Vital Signs 02/11/19 20:21 Temperature 98 F Pulse Rate 70 Respiratory 18 Rate Blood Pressure 213/71 O2 Sat by Pulse 98 Oximetry Medical Decision Making - Medical Decision Making 88-year-old female the ER with esophageal foreign body this resolved spontaneously upon arrival to emergency room. Patient is discharged Disposition Clinical Impression: Foreign body in esophagus Narrative: Resolved FB Disposition: HOME SELF-CARE Condition: Good Instructions (If sedation given, give patient instructions): Esophageal Foreign Body (ED) Is patient prescribed a controlled substance at d/c from ED?: No Referrals: Mikhail Courtney DO [Primary Care Provider] - 1-2 days
[2019-02-11] MEDS ORDERED: MAG HYDROX/AL HYDROX/SIMETH 30 ML, HYOSCYAMINE ELIXIR 10 ML, CIMETIDINE HCL 300 MG PO STA ×3 (21:03)
== END 2019-02-11 21:17 | disposition home or self-care (01) ==
LOC: EC 20:17
DX: T18.108A Unspecified foreign body in esophagus causing other injury, initial encounter (principal); F41.9 Anxiety disorder, unspecified; I10 Essential (primary) hypertension; J45.909 Unspecified asthma, uncomplicated; E11.9 Type 2 diabetes mellitus without complications; Z79.899 Other long term (current) drug therapy; Z88.8 Allergy status to other drugs, medicaments and biological substances; Z86.73 Personal history of transient ischemic attack (TIA), and cerebral infarction without residual deficits; Z85.828 Personal history of other malignant neoplasm of skin
CPT/HCPCS: 99283

== ENCOUNTER → 2019-03-29 | Outpatient (CLI) | payer MEDICARE, BC ==
--- NOTE | 2019-03-29 12:05 | FL ---
EXAMINATION TYPE: FL barium swallow DATE OF EXAM: 03/29/2019 CLINICAL HISTORY: Dysphagia with solids TECHNIQUE: A double contrast esophagram is performed utilizing air and barium. A total of 2.32 brady sb of fluoroscopy time was utilized with 66 fluoroscopic images saved. COMPARISON: None FINDINGS: The esophagus shows abnormal motility with tertiary contractions and multifocal esophageal spasm with mild delay emptying into the stomach inconsistently. No evidence of persistent stricture noted. Very small hiatal hernia is noted. Mild degree significant gastroesophageal reflux was seen du ring real time performance of this study to the level of the distal third of the esophagus. There is posterior impression on the lower cervical esophagus from anterior osteophytes of the cervical spine at approximately C5-C6. IMPRESSION: 1. Small hiatal hernia with mild degree gastroesophageal reflux to the level of the distal third of t he esophagus. 2. 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 Additionally inconsistent esophageal spasms are seen throughout the exam wit h inconsistent delayed passage of contrast at the gastroesophageal junction.
== END | disposition home or self-care (01) ==
LOC: RADUSWWP 10:21
PROVIDERS: ATTEND Internal Medicine Gastroenterology
DX: K21.9 Gastro-esophageal reflux disease without esophagitis (principal); K44.9 Diaphragmatic hernia without obstruction or gangrene; K22.8 Other specified diseases of esophagus
CPT/HCPCS: 74220

== ENCOUNTER 2019-08-14 01:26 | Emergency (ER) | payer MEDICARE, BC ==
[2019-08-14 01:33] VITALS: BP 115/56; PULSE 47; RESP 18; TEMP 98
--- NOTE | 2019-08-14 02:04 | ED ---
ENT HPI - General Chief complaint: Dental/Oral Stated complaint: Dental Time Seen by Provider: 08/14/19 01:29 Source: patient, EMS, RN notes reviewed, old records reviewed Mode of arrival: EMS Limitations: no limitations - History of Present Illness Initial comments: This is an 89-year-old female status post tooth extraction complaining of tooth pain. She did take Ultram which did help but not resolved pain she has followed up with dentist twice including this morning for evaluation place on antibiotics and, at this time patient is still complaining of pain there no fevers. She is concerned of elevated blood pressure low blood pressure is normal here in the ER patient denying any other complaints of headache chest pain shortness breath or abdominal MD complaint: tooth pain -: days(s) Location: tooth # (Right rear molar lower) Severity: moderate Severity scale (1-10): 4 Quality: aching Consistency: constant Improves with: none Worsens with: none Context-Epistaxis: recent surgery/procedure Context- Dental: poor dental care Associated Symptoms: toothache - Related Data Home Medications Medication Instructions Recorded Confirmed Furosemide [Lasix] 20 mg PO DAILY 07/22/14 11/29/18 Potassium Chloride [Klor-Con 8] 8 meq PO DAILY 07/22/14 11/29/18 Mometasone/Formoterol [Dulera 200 2 puff INHALATION RT-DAILY 09/27/14 11/29/18 Mcg/5 Mcg Inhaler] Ascorbic Acid [Vitamin C] 500 mg PO DAILY 09/15/15 11/29/18 Lisinopril-Hctz 20-12.5 mg 1 tab PO BID 09/20/15 11/29/18 [Zestoretic 20-12.5] amLODIPine [Norvasc] 10 mg PO DAILY 03/16/18 11/29/18 cloNIDine HCL [Catapres] 0.05 mg PO TID 03/16/18 11/29/18 traMADol HCL [Ultram] 50 mg PO Q4HR PRN 03/16/18 11/29/18 Cholecalciferol [Vitamin D3 (25 5,000 unit PO DAILY 05/26/18 11/29/18 Mcg = 1000 Iu)] LORazepam [Ativan] 0.25 mg PO HS 05/26/18 11/29/18 Melatonin 10 mg PO HS 05/26/18 11/29/18 Multivitamin,Therapeutic [Thera] 1 tab PO DAILY 05/26/18 11/29/18 Cyanocobalamin (Vitamin B-12) 5,000 mcg PO ONCE 11/24/18 11/29/18 [Vitamin B-12] Vit C/E/Zn/Coppr/Lutein/Zeaxan 1 each PO DAILY 11/24/18 11/29/18 [Preservision Areds 2 Softgel] Previous Rx's Medication Instructions Recorded Atorvastatin Calcium [Lipitor] 40 mg PO HS #30 tablet 05/27/18 Allergies Allergy/AdvReac Type Severity Reaction Status Date / Time gabapentin Allergy Rapid Verified 02/11/19 20:23 Heart Rate hydralazine [Hydralazine] Allergy HEART Verified 02/11/19 20:23 PALPITATIONS pregabalin [From Lyrica] Allergy Unknown Verified 02/11/19 20:23 Review of Systems ROS Statement: Those systems with pertinent positive or pertinent negative responses have been documented in the HPI. ROS Other: All systems not noted in ROS Statement are negative. Past Medical History Past Medical History: Asthma, Cancer, CVA/TIA, Diabetes Mellitus, Hyperlipidemia, Hypertension, Musculoskeletal Disorder, Osteoarthritis (OA), Skin Disorder Additional Past Medical History / Comment(s): hx uti's, hx svt past ablation 2015. pt stated that around feb 2018 wore a heart moniitor for 25 days.. thin skin prone to skin tears use paper tape, murmur, basal cell skin cancer on scalp/ear(sx), tia 05/25/18, herniated disc,eczema, neuopathy, hx cellulitis rt leg, diet controlled diabetic History of Any Multi-Drug Resistant Organisms: None Reported Past Surgical History: Appendectomy, Bladder Surgery, Cardiac Ablation, Cholecystectomy, EPS, Hysterectomy, Tonsillectomy Additional Past Surgical History / Comment(s): BLADDER SUSPENSION , lt KNEE SURGERY ARTHROSCOPY, LT HAND CARPAL TUNNEL RELEASE, CATARACT, EP STUDY/ABLATION FOR SVT 2015, BASAL CELL SKIN CA REMOVED FROM SCALP AND EARS, PAIN PROCEDURES WITH EPIDURALS Past Anesthesia/Blood Transfusion Reactions: No Reported Reaction Past Psychological History: Anxiety Smoking Status: Never smoker - Past Family History Father History Unknown: Yes Additional Family Medical History / Comment(s): parents -never knew her dad Mother Family Medical History: CVA/TIA, Diabetes Mellitus Additional Family Medical History / Comment(s): TIA General Exam Limitations: no limitations General appearance: alert, in no apparent distress Head exam: Present: atraumatic, normocephalic, normal inspection Eye exam: Present: normal appearance, PERRL, EOMI. Absent: scleral icterus, conjunctival injection, periorbital swelling ENT exam: Present: normal exam, mucous membranes moist, other (Right lower maxillary molar, dry socket no abscess) Neck exam: Present: normal inspection. Absent: tenderness, meningismus, lymphadenopathy Respiratory exam: Present: normal lung sounds bilaterally. Absent: respiratory distress, wheezes, rales, rhonchi, stridor Cardiovascular Exam: Present: regular rate, normal rhythm, normal heart sounds. Absent: systolic murmur, diastolic murmur, rubs, gallop, clicks GI/Abdominal exam: Present: soft, normal bowel sounds. Absent: distended, te nderness, guarding, rebound, rigid Extremities exam: Present: normal inspection, full ROM, normal capillary refill. Absent: tenderness, pedal edema, joint swelling, calf tenderness Back exam: Present: normal inspection Neurological exam: Present: alert, oriented X3, CN II-XII intact Psychiatric exam: Present: normal affect, normal mood Skin exam: Present: warm, dry, intact, normal color. Absent: rash Course Vital Signs 08/14/19 01:28 Temperature 98.0 F Pulse Rate 47 L Respiratory 18 Rate Blood Pressure 115/56 O2 Sat by Pulse 96 Oximetry - Reevaluation(s) Reevaluation #1: 08/14/19 02:15 Medical records reviewed Reevaluation #2: 08/14/19 02:15 A she has adequate pain control Medical Decision Making - Medical Decision Making 89 female here for evaluation of dental pain, dental pain is resolved currently. Patient was concerned of blood pressure blood pressure is normal here in the ER. Patient can be discharged home Disposition Clinical Impression: Dental abscess, Dental caries, Toothache Disposition: HOME SELF-CARE Condition: Good Instructions (If sedation given, give patient instructions): Dental Abscess (ED), Toothache (ED) Is patient prescribed a controlled substance at d/c from ED?: No Referrals: Mikhail Courtney DO [Primary Care Provider] - 1-2 days
[2019-08-14] MEDS ORDERED: Acetaminophen-Codeine 300-30mg TAB PO STA (02:14)
[2019-08-14] MEDS ORDERED: ACET/COD 300 MG/30 MG STARTER PACK 6 TAB BTL PO STA (02:14)
[2019-08-14] MEDS ORDERED: KETOROLAC 60 MG/2 ML VIAL IM STA (02:14)
[2019-08-14] MEDS ORDERED: CLINDAMYCIN 150 MG CAP PO STA (02:14)
== END 2019-08-14 03:11 | disposition home or self-care (01) ==
LOC: EC 01:26
DX: K04.7 Periapical abscess without sinus (principal); K02.9 Dental caries, unspecified; I10 Essential (primary) hypertension; E11.9 Type 2 diabetes mellitus without complications; F41.9 Anxiety disorder, unspecified; Z79.899 Other long term (current) drug therapy; Z88.8 Allergy status to other drugs, medicaments and biological substances; Z86.73 Personal history of transient ischemic attack (TIA), and cerebral infarction without residual deficits
CPT/HCPCS: 99283; 96372; J1885

== ENCOUNTER → 2020-01-03 | Outpatient (CLI) | payer MEDICARE, BC | END | disposition home or self-care (01) | LOC: LABWHC1 09:47 | PROVIDERS: ATTEND Internal Medicine Interventional Cardiology | DX: Z11.59 Encounter for screening for other viral diseases (principal) ==

== ENCOUNTER → 2020-01-05 | Day surgery (SDC) | payer MEDICARE, BC ==
[2020-01-03 13:44] VITALS: BMI 25.3
[~2020-01-05] MED LIST changes: +BENZOCAINE SPRAY 1 CAN TOPICAL ONE; +BENZOCAINE SPRAY 1 CAN TOPICAL PRN; +MIDAZOLAM 2 MG/2 ML VIAL IV ONE; +MIDAZOLAM 2 MG/2 ML VIAL IVP ONE; -SODIUM CHLORIDE 0.9% 1,000 ML IV SCH; +SODIUM CHLORIDE 0.9% 500 ML 500 ML IV ONE; +fentaNYL (PF) 50 MCG/ML 2 ML AMP IVP ONE
[2020-01-05] MEDS: fentaNYL (PF) 50 MCG/ML 2 ML AMP IVP ONE ×2 (11:50→11:59)
[2020-01-05] MEDS: MIDAZOLAM 2 MG/2 ML VIAL IVP ONE ×2 (11:50→11:59)
[2020-01-05] MEDS: BENZOCAINE SPRAY 1 CAN TOPICAL ONE ×2 (11:50→11:59)
[2020-01-05 13:26] VITALS: RESP 18; TEMP 98.4
[2020-01-05 13:30] VITALS: BP 128/62; PULSE 52
--- NOTE | 2020-01-05 14:02 | ECHOT ---
TRANSESOPHAGEAL ECHOCARDIOGRAM DATE OF SERVICE: 01/05/2020. PERFORMING PHYSICIAN: Royer Boudreaux MD. PROCEDURE PERFORMED: Transesophageal echocardiogram. INDICATION: Aortic stenosis. COMPLICATION: None. LEVEL OF SEDATION: Moderate with sedation length of 15 minutes. PROCEDURE DESCRIPTION: After obtaining an informed consent, explaining the procedure, benefits, risks, complications and alternatives, the patient was brought to the transesophageal echocardiogram suite. A pulse oximetry and heart rate monitors were attached to the patient prior to the procedure. The patient's throat was sprayed using lidocaine locally. Following that, the patient was turned into left lateral position. A bite guard was placed and the patient was then sedated with the above doses of Versed and fentanyl in divided doses. Following that, the transesophageal echocardiogram probe was advanced through the bite guard into the mid esophagus where 2-D echocardiogram images as well as color Doppler images of various cardiac structures were obtained. We evaluated the interatrial septum using 2-D echocardiogram, color Doppler, and contrast study. The procedure was completed. There were no complications. FINDINGS: The left ventricular dimension and systolic function appeared to be within normal limits. The ejection fraction appeared to be in the range of 55% to 60%. There was mild to moderate concentric LVH. The right ventricle appeared to be of normal size and function. The left atrium and right atrium appeared to be dilated. The left atrial appendage appeared to be free from any thrombus. The interatrial septum appeared to be intact. The aortic valve is extremely thickened and calcified with evidence of aortic sclerosis and severe aortic stenosis with a peak gradient of 88 and mean of 44 mmHg. The mitral valve seems to be also thickened with evidence of moderate MR. There was moderate tricuspid regurgitation seen and mild pulmonic insufficiency. The aortic root appeared to be also dilated. CONCLUSION.: 1. Normal left ventricular dimension and systolic function. 2. Normal right ventricular dimension and systolic function. 3. Severe left atrial dilatation and moderate right atrial dilatation. 4. Intact interatrial septum. 5. Normal left atrial appendage. 6. Aortic sclerosis with severe aortic stenosis. The peak gradient was 88 and the mean was 44 mmHg. 7. Thickened anterior and posterior mitral leaflets with moderate MR. 8. Thickened tricuspid valve leaflets with moderate TR. 9. Dilated aortic root. 10.No evidence of pericardial effusion. MMODL / IJN: [id number] /
== END ==
LOC: CATHCVL 08:44
PROVIDERS: ATTEND Internal Medicine Interventional Cardiology
DX: I08.3 Combined rheumatic disorders of mitral, aortic and tricuspid valves (principal); I49.5 Sick sinus syndrome; I47.1 Supraventricular tachycardia; I44.0 Atrioventricular block, first degree; I11.9 Hypertensive heart disease without heart failure; E11.9 Type 2 diabetes mellitus without complications; E78.00 Pure hypercholesterolemia, unspecified; E78.5 Hyperlipidemia, unspecified; Z79.899 Other long term (current) drug therapy; Z88.5 Allergy status to narcotic agent; Z88.8 Allergy status to other drugs, medicaments and biological substances; Z86.73 Personal history of transient ischemic attack (TIA), and cerebral infarction without residual deficits
CPT/HCPCS: 93312; 93320; 93325; J2250; J3010

== ENCOUNTER → 2020-01-19 | Outpatient (CLI) | payer MEDICARE, BC ==
[2020-01-19 14:09] LABS: HCT 35.8 % (34.0-46.0); HGB 11.7 gm/dL (11.4-16.0); MCH 29.4 pg (25.0-35.0); MCHC 32.7 g/dL (31.0-37.0); MCV 89.9 fL (80.0-100.0); Mean Platelet Volume 7.7; Platelet Count 246 k/uL (150-450); RBC 3.98 m/uL (3.80-5.40); RDW 12.5 % (11.5-15.5); WBC 6.9 k/uL (3.8-10.6)
[2020-01-19 14:18] LABS: African American GFR (CKD) >90 (>60 ml/min/1.73 sqM); Anion Gap 4 mmol/L; Blood Urea Nitrogen 15 mg/dL (7-17); Carbon Dioxide 31 mmol/L (22-30); Chloride 99 mmol/L (98-107); Non-African American GFR(CKD) 83 (>60 ml/min/1.73 sqM); Potassium 4.2 mmol/L (3.5-5.1); Sodium 134 mmol/L (137-145)
== END | disposition home or self-care (01) ==
LOC: LABWHC1 12:51
PROVIDERS: ATTEND Internal Medicine Interventional Cardiology
DX: Z01.818 Encounter for other preprocedural examination (principal); I35.0 Nonrheumatic aortic (valve) stenosis
CPT/HCPCS: 36415; 80051; 82565; 84520; 85027

== ENCOUNTER → 2020-01-25 | Day surgery (SDC) | payer MEDICARE, BC ==
[2020-01-24 08:41] VITALS: BMI 25.3
[~2020-01-25] MED LIST changes: +ALPRAZolam 0.25 MG TAB PO PRN; +ALPRAZolam 0.5 MG TAB PO PRN; +ASPIRIN 325 MG TAB PO STA; +ATORVASTATIN 80 MG TAB PO STA; -BENZOCAINE SPRAY 1 CAN TOPICAL ONE; -BENZOCAINE SPRAY 1 CAN TOPICAL PRN; +HEPARIN SODIUM 1,000 UN/ML (10ML VL) IV ONE; +IOPAMIDOL-370 100ML BTL INJ ONE; +LIDOCAINE 1% INJ 10MG/ML (20 ML MDV) SQ ONE; -MIDAZOLAM 2 MG/2 ML VIAL IVP ONE; +NITROGLYCERIN SL TABS 0.4 MG TAB SUBLINGUAL PRN; +RX INFO: IV CONTRAST WAS GIVEN 1 EACH MISC MISCELLANE PRN; +SODIUM CHLORIDE 0.9% 1,000 ML IV SCH; +SODIUM CHLORIDE 0.9% 1,000 ML in EMPTY BAG 1 BAG IV ONE; -SODIUM CHLORIDE 0.9% 500 ML 500 ML IV ONE; -fentaNYL (PF) 50 MCG/ML 2 ML AMP IVP ONE; +traMADol 50 MG TAB PO SCH
[2020-01-25 09:38] VITALS: RESP 18; TEMP 98.3
[2020-01-25] MEDS: VERAPAMIL SYRINGE (5 MG/10 ML) INTRAARTER ONE ×2 (11:37→11:44)
--- NOTE | 2020-01-25 15:47 | CC ---
CARDIAC CATHETERIZATION REPORT DATE OF SERVICE: 01/25/2020 PERFORMING PHYSICIAN: Royer Boudreaux M.D. PROCEDURE PERFORMED: Selective right and left coronary angiogram. INDICATION: This is an 89-year-old female patient who is in good physical and mental shape who sees Dr. Dickinson in the office as an outpatient and was diagnosed recently with severe symptomatic aortic stenosis. Coronary angiogram is to assess her coronary anatomy. APPROACH: Right radial artery. COMPLICATIONS: None. LEVEL OF SEDATION: Moderate, with sedation length of 10 minutes. PROCEDURE DESCRIPTION: After obtaining informed consent, the patient was brought to the cardiac [facility]. The right radial artery was cannulated using micropuncture technique. The micropuncture wire passed easily. Then I placed a 6-Gibralt[place] sheath at the right radial artery. After that I gave the patient 2 mg of verapamil IA and 6,000 units of heparin IV. Selective right and left coronary angiogram was performed using JR4 and JL3.5 catheters. The procedure was completed without any complication. SELECTIVE CORONARY ANGIOGRAM: 1. The right coronary artery is a large-caliber vessel. It is a dominant vessel and appeared to be angiographically normal. It distally bifurcates into PDA and PLV branches. Both appeared to be angiographically normal. 2. The left main is short, bifurcates into LCX and LAD. 3. The LCX is a large-caliber vessel and it is a nondominant vessel. The proximal left circumflex appeared to be normal. The mid circumflex has a critical lesion that appeared to be in the range of 80% to 90%. This is by the bifurcation of medium-sized OM branch. The circumflex distally gives rise to a second OM branch which seems to be normal, and the circumflex continues after that angiographically normal. 4. The LAD. The proximal LAD appeared to have mild disease only. The mid LAD and distal LAD appeared to be angiographically normal. The LAD gives rise to first and second diagonal branches. Both appeared to be angiographically normal. CONCLUSION: 1. Calcified right and left coronary systems. 2. 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 POST-PROCEDURE MANAGEMENT: 1. If the patient is going to have surgical aortic valve replacement, then she can have coronary artery bypass grafting of the left circumflex at the same time. 2. If the patient is going to undergo transcutaneous aortic valve replacement, she needs to have a PCI of the left circumflex with adjunctive use of atherectomy before the TAVR. MMLUIZA / IJN: [id number] /
[2020-01-25 16:51] VITALS: BP 121/54; PULSE 54
== END ==
LOC: CATHCVL 08:47
PROVIDERS: ATTEND Internal Medicine Interventional Cardiology
DX: I25.10 Atherosclerotic heart disease of native coronary artery without angina pectoris (principal); I35.0 Nonrheumatic aortic (valve) stenosis; I49.5 Sick sinus syndrome; I47.1 Supraventricular tachycardia; I44.0 Atrioventricular block, first degree; I10 Essential (primary) hypertension; E78.00 Pure hypercholesterolemia, unspecified; E11.9 Type 2 diabetes mellitus without complications; E78.5 Hyperlipidemia, unspecified; Z79.899 Other long term (current) drug therapy; Z88.5 Allergy status to narcotic agent; Z88.8 Allergy status to other drugs, medicaments and biological substances
CPT/HCPCS: 93454; C1769; C1894; J2250; J2001; J1644; Q9967

== ENCOUNTER 2020-02-13 06:25 | Day surgery (SDC) | payer MEDICARE, BC ==
[2020-02-07 12:11] VITALS: BMI 24.7
[~2020-02-13 06:25] MED LIST changes: -ASPIRIN 325 MG TAB PO STA; -ATORVASTATIN 80 MG TAB PO STA; -HEPARIN SODIUM 1,000 UN/ML (10ML VL) IV ONE; -IOPAMIDOL-370 100ML BTL INJ ONE; -LIDOCAINE 1% INJ 10MG/ML (20 ML MDV) SQ ONE; -MIDAZOLAM 2 MG/2 ML VIAL IV ONE; -RX INFO: IV CONTRAST WAS GIVEN 1 EACH MISC MISCELLANE PRN; -SODIUM CHLORIDE 0.9% 1,000 ML IV SCH; -traMADol 50 MG TAB PO SCH
[2020-02-13] MEDS ORDERED: ASPIRIN 81 MG ONE (06:45)
[2020-02-13] MEDS ORDERED: ASPIRIN 325 MG TAB PO ONE (07:00)
[2020-02-13] MEDS ORDERED: MIDAZOLAM 2 MG/2 ML VIAL IV ONE (08:33)
[2020-02-13] MEDS ORDERED: LIDOCAINE 1% INJ 10MG/ML (20 ML MDV) SQ ONE (08:35)
[2020-02-13] MEDS ORDERED: BIVALIRUDIN BOLUS 250 MG/50 ML IV ONE (08:38)
[2020-02-13] MEDS ORDERED: BIVALIRUDIN 250 MG in SODIUM CHLORIDE 0.9% 50 ML IV ONE (08:38)
[2020-02-13] MEDS ORDERED: CLOPIDOGREL 75 MG TAB PO ONE (08:46)
[2020-02-13] MEDS ORDERED: IOPAMIDOL-370 100ML BTL INJ ONE (08:49)
[2020-02-13] MEDS ORDERED: LORazepam 0.5 MG TAB PO PRN (08:56)
[2020-02-13] MEDS ORDERED: traMADol 50 MG TAB PO PRN (08:56)
[2020-02-13] MEDS ORDERED: RX INFO: IV CONTRAST WAS GIVEN 1 EACH MISC MISCELLANE PRN (08:57)
[2020-02-13] MEDS ORDERED: ZOLPIDEM 5 MG TAB PO PRN (08:57)
[2020-02-13] MEDS ORDERED: MAG HYDROX/AL HYDROX/SIMETH 30 ML CUP PO PRN (08:57)
[2020-02-13] MEDS ORDERED: ATROPINE SULFATE 0.1 MG/ML 10ML SYRINGE IV PRN (08:57)
[2020-02-13] MEDS ORDERED: NITROGLYCERIN SL TABS 0.4 MG TAB SUBLINGUAL PRN (08:57)
[2020-02-13] MEDS ORDERED: SODIUM CHLORIDE 0.9% 1,000 ML IV SCH (09:00)
[2020-02-13] MEDS ORDERED: [UNRECOGNIZED DRUG - OTHER] BOTH EYES SCH (09:00)
[2020-02-13] MEDS ORDERED: CHOLECALCIFEROL 1,000 UNIT TAB PO SCH (10:00)
[2020-02-13] MEDS: SYMBICORT 80-4.5 MCG INHALER INHALATION SCH ×2 (12:54→20:52)
[2020-02-13] MEDS: ASCORBIC ACID 500 MG TAB PO SCH (16:22)
[2020-02-13] MEDS: cloNIDine HCL 0.1 MG TAB PO SCH ×2 (16:23→22:31)
[2020-02-13] MEDS: VIT A,C & E-LUTEIN-MINERALS 1 EACH TAB PO SCH (16:23)
[2020-02-13] MEDS: ARTIFICIAL TEARS-HYPROMELLOSE DROPS 15 ML BTL BOTH EYES SCH ×4 (16:23→22:32)
[2020-02-13] MEDS: FERROUS SULFATE 325 MG TAB PO SCH (16:23)
[2020-02-13] MEDS: CYANOCOBALAMIN 500 MCG TAB PO SCH (16:29)
[2020-02-13] MEDS: LISINOPRIL-HCTZ 20-12.5 MG 1 EACH TAB PO SCH (19:54)
[2020-02-13] MEDS ORDERED: MELATONIN 5 MG TABLET PO SCH (21:00)
[2020-02-13] MEDS ORDERED: ATORVASTATIN 40 MG TAB PO SCH (21:00)
[2020-02-14 06:02] LABS: Basophils % (A) 1 %; Eosinophils # (A) 0.5 k/uL (0-0.7); Eosinophils % (A) 7 %; HCT 35.5 % (34.0-46.0); HGB 12.3 gm/dL (11.4-16.0); Lymphocytes % (A) 15 %; MCH 31.1 pg (25.0-35.0); MCHC 34.5 g/dL (31.0-37.0); MCV 89.9 fL (80.0-100.0); Mean Platelet Volume 7.3; Monocytes # (A) 0.4 k/uL (0-1.0); Monocytes % (A) 7 %; Neutrophils # (A) 4.3 k/uL (1.3-7.7); Neutrophils % (A) 68 %; Platelet Count 227 k/uL (150-450); RBC 3.95 m/uL (3.80-5.40); RDW 12.3 % (11.5-15.5); WBC 6.4 k/uL (3.8-10.6)
[2020-02-14 06:13] LABS: African American GFR (CKD) >90 (>60 ml/min/1.73 sqM); Anion Gap 3 mmol/L; Blood Urea Nitrogen 10 mg/dL (7-17); Calcium 8.8 mg/dL (8.4-10.2); Carbon Dioxide 29 mmol/L (22-30); Chloride 98 mmol/L (98-107); Glucose 95 mg/dL (74-99); Non-African American GFR(CKD) 86 (>60 ml/min/1.73 sqM); Potassium 3.8 mmol/L (3.5-5.1); Sodium 130 mmol/L (137-145)
[2020-02-14 06:34] VITALS: TEMP 98
[2020-02-14] MEDS ORDERED: ASPIRIN 325 MG TAB PO SCH (09:00)
[2020-02-14] MEDS ORDERED: FUROSEMIDE 20 MG TAB PO SCH (09:00)
[2020-02-14] MEDS ORDERED: CLOPIDOGREL 75 MG TAB PO SCH (09:00)
[2020-02-14] MEDS ORDERED: POTASSIUM CHLORIDE ER 10 MEQ TAB.ER.PRT PO SCH (09:00)
[2020-02-14] MEDS: ASCORBIC ACID 500 MG TAB PO SCH (09:28)
[2020-02-14] MEDS: FERROUS SULFATE 325 MG TAB PO SCH (09:28)
[2020-02-14] MEDS: cloNIDine HCL 0.1 MG TAB PO SCH (09:28)
[2020-02-14] MEDS: SYMBICORT 80-4.5 MCG INHALER INHALATION SCH (09:28)
[2020-02-14] MEDS: amLODIPine 10 MG TAB PO SCH ×2 (09:28→09:35)
[2020-02-14] MEDS: LISINOPRIL-HCTZ 20-12.5 MG 1 EACH TAB PO SCH (09:29)
[2020-02-14] MEDS: ARTIFICIAL TEARS-HYPROMELLOSE DROPS 15 ML BTL BOTH EYES SCH (09:30)
[2020-02-14] MEDS: CYANOCOBALAMIN 500 MCG TAB PO SCH (09:38)
[2020-02-14] MEDS: VIT A,C & E-LUTEIN-MINERALS 1 EACH TAB PO SCH (09:39)
[2020-02-14 10:53] VITALS: BP 133/60; PULSE 70; RESP 16
--- NOTE | 2020-02-14 19:51 | DS ---
DISCHARGE SUMMARY This is a pleasant 89-year-old female patient who sees Dr. Dickinson in the office as an outpatient. She was diagnosed recently with severe symptomatic aortic stenosis. She did undergo a heart catheterization which revealed critical disease involving the LCX. She underwent successful stenting of the LCX with excellent angiographic results and without any complication. She is going to be discharged home today and follow up with Dr. Dickinson in the office next week. MMODL / IJN: [id number] /
--- NOTE | 2020-02-16 11:25 | PTCA ---
PERCUTANEOUSTRANS CORORONARY ANGIOGRAPHY DATE OF SERVICE: 02/13/2020 PERFORMING PHYSICIAN: Royer Boudreaux MD. PROCEDURE PERFORMED: Successful stenting of the mid left circumflex coronary artery using 3.5 x 15 mm Xience ADOLFO with an excellent angiographic result and reduction of stenosis from 80% to 0%. INDICATION: This is a pleasant 89-year-old female patient who was diagnosed recently with severe symptomatic aortic stenosis and she is going to undergo transcutaneous aortic valve replacement. A heart catheterization was performed and revealed severe stenosis involving the mid LCX. APPROACH: Right common femoral artery. COMPLICATION: None. LEVEL OF SEDATION: Moderate with sedation length of about 20 minutes. PROCEDURE DESCRIPTION: After obtaining an informed consent, the patient was brought to the cardiac mill [facility]. The right common femoral artery was cannulated using micropuncture technique, the micropuncture wire passed easily, then I placed a 6-Trinid[place] sheath Anticoagulation was initiated using Angiomax. I did engage the left main using JL4 guide. I did wire the left circumflex using a run- through wire. After that, I did predilatation using 3.0 x 12 mm balloon before I deployed 3.5 x 15 mm Xience ADOLFO where the stent was positioned under fluoroscopic guidance and deployed under its nominal pressure. The following angiogram showed excellent angiographic results and the procedure was completed without any complication. POSTPROCEDURE MANAGEMENT: 1. Dual anti-platelet therapy. 2. Risk factors modifications. 3. Follow up with the patient. MMFRIDAL / JOHN: [id number] /
== END 2020-02-14 11:17 | disposition home or self-care (01) ==
LOC: CATHCVL 06:25 → 3SCARD 08:50 → CATHCVL 02-14 11:17
PROVIDERS: ATTEND Internal Medicine Interventional Cardiology
DX: I25.10 Atherosclerotic heart disease of native coronary artery without angina pectoris (principal); I35.0 Nonrheumatic aortic (valve) stenosis; Z79.01 Long term (current) use of anticoagulants; Z95.2 Presence of prosthetic heart valve
CPT/HCPCS: 94640 ×2; 80048; 85025; C9600; C1887; C1725; C1769 ×3; C1894; C1874; J2250; J2001; J0583; Q9967

== ENCOUNTER → 2020-04-09 | Outpatient (CLI) | payer MEDICARE, BC | END | disposition home or self-care (01) | LOC: LABWHC1 04-08 11:56 | PROVIDERS: ATTEND Ophthalmology | DX: M35.01 Sjogren syndrome with keratoconjunctivitis (principal) | CPT/HCPCS: 36415 ==